=== PATIENT | male | born 1995 | race Two or more races ===

== ENCOUNTER → 2019-06-06 | Emergency (ER) | payer MEDICAID, OTHER ==
[~2019-06-06] VITALS: Ht 175.3 cm; Wt 65.8 kg
[2019-06-06 14:12] VITALS: BP 115/71
--- NOTE | 2019-06-06 14:16 | NUR ---
PT IS AWAKE AND ORIENTED. MD IS AT BEDSIDE.
--- NOTE | 2019-06-06 14:26 | NUR ---
Patient discharged to home in stable condition. Written and verbal after care instructions given. Patient verbalizes understanding of instruction.
== END | disposition home or self-care (01) ==
LOC: ER 14:10
DX: T20.13XA Burn of first degree of chin, initial encounter (principal); T22.131A Burn of first degree of right upper arm, initial encounter; T31.0 Burns involving less than 10% of body surface; L01.00 Impetigo, unspecified; X11.8XXA Contact with other hot tap-water, initial encounter; Y93.89 Activity, other specified; Y92.89 Other specified places as the place of occurrence of the external cause; Y99.8 Other external cause status